=== PATIENT | male | born 1960 | race Caucasian/White ===

== ENCOUNTER 2018-05-23 12:27 | Emergency (ER) | payer MEDICAID, SELFPAY ==
[2018-05-23 12:35] VITALS: BP 145/86; PULSE 53; RESP 18; TEMP 37; O2SAT 99
--- NOTE | 2018-05-23 12:57 | DI.RPTCT_ITS ---
SYMPTOMS/DIAGNOSIS: TRAUMA, LEFT JAW/HEAD PAIN, LEFT ARM INJURY S/P FALL FROM LADDER NONCONTRAST HEAD CT: There are no prior comparison exams. No intracranial hemorrhage or skull fracture is seen. The ventricles are normal in size. The sinuses and mastoid air cells appear clear. IMPRESSION: Negative head CT. FACIAL CT: There is a comminuted fracture of the left zygomatic arch with inward displacement. No additional facial fractures are seen. The orbits appear intact. No temporomandibular joint dislocation is seen. IMPRESSION: Left zygomatic arch fractures.
--- NOTE | 2018-05-23 12:58 | DI.REPORT_ITS ---
SYMPTOMS/DIAGNOSIS: TRAUMA, PAIN 1ST MCP JOINT, PAIN MEDIAL AND LATERAL WRIST, ELBOW PAIN LEFT HAND: No fracture or dislocation is seen. There are mild degenerative changes of the interphalangeal joints. IMPRESSION: No acute abnormality. LEFT WRIST: No fracture or dislocation is seen. There are mild degenerative changes at the first carpal metacarpal joint and a cyst in the lunate. IMPRESSION: No acute abnormality. LEFT ELBOW: No fracture or joint effusion is seen. IMPRESSION: Negative left elbow.
--- NOTE | 2018-05-23 13:23 | ED.GENADUL_ITS ---
Disposition Clinical Impression: Zygomatic arch fracture Disposition: HOME Condition: Stable Instructions: Facial Fracture (ED) Additional Instructions: Please return immediately to the emergency department if you develop any new or worsening symptoms or if you become otherwise concerned. It is extremely important that you make an appointment to be seen by an clearing tub worker within the next week. Dr. Zamora's office of Ear, Nose and Throat at [facility] will call this week to schedule that appointment. Please call [phone] if you have any difficulty establishing this appointment. Please eat a soft diet as tolerated. It is also very important that you call the orthopedist to schedule an appointment to be seen within the next 1-2 weeks for a wrist injury. Referrals: Pravin Young MD [ [facility] STAFF PHYSICIAN] - Gabriela Max MD [ [facility] STAFF PHYSICIAN] - Medical Decision Making - Radiology Data CT head/facial bones per radiology: comminuted fx of Left zygomatic arch with inward displacement, no other acute process Plain films left elbow, wrist, hand visualized and interpreted by myself in conjunction with radiology: no acute process - Medical Decision Making Dontae Brewster is a 57 y/o man without reported h/o major medical problems who presented to the ED with left facial pain and left UE pain after fall while holding onto ladder that slid down wall. On exam with TTP over left zygoma and TTP of left wrist and left MCP joint. ROM left UE joints intact. C/s NTTP. Exam/ hx not c/w c/s fx, signficant thoraco-abdominal trauma. Concern for intracranial /facial trauma, fx of the elbow, wrist, hand vs UCL injury vs contusion. Plan for CT head/face, plain films left elbow, wrist, hand. Pt declines pain meds at this time. CT shows comminuted fx of zyogmatic arch. Plan for ENT consult for appropriate f /u. [facility] [place] contacted, images pushed, awaiting callback. 3:53 Contacted [facility] [place], who reports that they have not yet received images and will work on obtaining them. Discussed Pt presentation and results with Dr. Zamora, on-call ENT at [facility] [place], who has reviewed images, recommends no abx, f/u with ENT in one week, for eval for possible surgery, soft diet as tolerated, no other restrictions. Pt placed in thumb spica. Lengthy discussion with Pt re: RTED precautions, importance of outpt f/u with ENT in one week and ortho in 1-2 weeks for continued symptoms, and with PCP. Pt is amenable to the plan. History of Present Illness - General Chief complaint: Orthopedic Stated complaint: LEFT ARM INJURY Time Seen by Provider: 05/23/18 12:41 Source: patient, RN notes reviewed Mode of arrival: ambulatory Limitations: no limitations - History of Present Illness Initial comments: Dontae Brewster is a 57 y/o man without reported h/o major medical problems presenting to the emergency department with facial pain after fall from ladder. Pt reports that just prior to arrival he was standing on a ladder in his home.The bottom of the ladder began to slip outward away from the wall, and the Pt reports that he fell approximately 8 feet while holding onto the ladder. He landed with his left face against the ladder. He now reports left-sided facial pain, and some pain in his left elbow, left, wrist, and left thumb. He denies hitting his head. Denies LOC, remembers event in entirety. No n/v. Denies neck pain or any other pain other than as above. No SOB. No n/t or weakness. Was previously in his usual state of health, denies any symptoms prior to ladder accident. Has been eating and drinking as usual. - Related Data Naproxen Sodium [Aleve] 2 cap PO HS 09/15/13 Allergies Allergy/AdvReac Type Severity Reaction Status Date / Time No Known Allergies Allergy Unverified 05/23/18 12:38 Review of Systems Constitutional: denies: fever Eyes: denies: eye pain ENT: denies: ear pain, throat pain, dental pain Respiratory: denies: cough, shortness of breath Cardiovascular: denies: chest pain Endocrine: denies: increased hunger, increased thirst Gastrointestinal: denies: abdominal pain, nausea, vomiting Musculoskeletal: arthralgia (left elbow, left wrist, left hand). denies: back pain, myalgia Skin: denies: rash Neurological: denies: headache, weakness, numbness Past Medical History - Past Medical History Medical history: no medical history. denies: diabetes - Social History Smoking status: former smoker Alcohol use: none Drug use: marijuana General Exam - General Limitations: no limitations General appearance: alert, other (appears uncomfortable but pleasant and conversing normally, non-toxic) - Head Head exam: Present: atraumatic, normocephalic, normal inspection - Eye Eye exam: Present: PERRL. Absent: scleral icterus, conjunctival injection Pupils: Absent: irregular, unequal, miosis, mydriatic - ENT ENT exam: Present: normal orophraynx, mucous membranes moist, normal external ear exam, other (edema and TTP over left zygoma with <1cm superfical abrasion overlying. Pain with wide opening of jaw but no trismus. Left TMJ NTTP. No other facial bone TTP. ) - Neck Neck exam: Present: normal inspection, full ROM. Absent: tenderness (no vertebral or paraspinal TTP) - Respiratory Respiratory exam: Present: normal lung sounds bilaterally. Absent: respiratory distress, chest wall tenderness - Cardiovascular Cardiovascular Exam: Present: regular rate, normal rhythm, normal heart sounds - GI/Abdominal GI/Abdominal exam: Present: soft. Absent: distended, tenderness - Extremities Exam Extremities exam: Present: normal inspection, full ROM (FROM left elbow, left wrist, left hand. Pain with abduction/adduction left thumb against resistence. Flex/ext all digitis intact. ), tenderness (radial and ulnar aspects of left wrist. +snuffbox TTP. TTP of left 1st MCP joint. ), normal capillary refill ( radial pulses intact and symmetric), other. Absent: pedal edema, joint swelling (left elbow NTTP. Left forearm NTTP. left clavicle, shoulder, humerus NTTP. Normal exam of RUE. ) - Back Exam Back exam: Present: normal inspection. Absent: tenderness, rash noted - Neurological Exam Neurological exam: Present: alert, CN II-XII intact, normal gait. Absent: altered - Psychiatric Psychiatric exam: Present: normal affect, normal mood - Skin Skin exam: Present: warm, dry, intact, normal color. Absent: rash Course Vital Signs - 24 hr 05/23/18 12:35 Temperature 37 C Pulse 53 L Respiratory 18 Rate Blood Pressure 145/86 Pulse Oximetry 99
[2018-05-23] MEDS: Ibuprofen 600 MG TAB PO (15:56)
[2018-05-23] MEDS: oxyCODONE 5 mg/Acetaminophen 325 mg TAB 1 TAB PO (16:19)
[2018-05-23 16:22] VITALS: TEMP 36.5
== END 2018-05-23 16:23 | disposition home or self-care (01) ==
PROVIDERS: Emergency Provider Student in an Organized Health Care Education/Training Program; PCP Nurse Practitioner Family
DX: S02.40FA Zygomatic fracture, left side, initial encounter for closed fracture (principal); M79.631 Pain in right forearm; M79.642 Pain in left hand; W11.XXXA Fall on and from ladder, initial encounter
CPT/HCPCS: 29125; 99284; 70450; 70486; 73080; 73110; 73130; 99285; L3807

== ENCOUNTER 2023-08-05 19:09 | Outpatient (REF) | payer MEDICAID, SELFPAY ==
[2023-08-05 19:26] LABS: Abs Immature Grans 0.04 10^3/uL (0.0-0.06); Absolute Basophil Count 0.07 10^3/uL (0.0-0.2); Absolute Eosinophil Count 0.35 10^3/uL (0.0-0.7); Absolute Lymphocyte Count 3.17 10^3/uL (1.2-3.4); Absolute Monocyte Count 0.72 10^3/uL (0.1-0.8); Absolute Neutrophil Count 5.99 10^3/uL (1.2-6.7); Basophils % 0.7; Eosinophils % 3.4; HCT 48.6 % (40.0-50.0); HGB 16.3 g/dL (13.5-17.5); Immature Grans % 0.4; Lymphocytes % 30.7; MCH 29.9 pg (27.0-33.0); MCHC 33.5 % (32.0-36.0); MCV 89 fL (80-95); MPV 10.7 fL (8.0-11.0); Neutrophils % 57.8; Platelet Count 231 10^3/uL (130-400); RBC 5.46 10^6/uL (4.36-5.78); RDW 13.2 % (11.8-14.1); RDW-SD 42.8 fL; WBC 10.34 10^3/uL (4.4-10.8)
[2023-08-05 20:17] LABS: ALT 55 U/L (16-63); AST 35 U/L (15-37); Albumin 4.4 g/dL (3.4-5.0); Alkaline Phosphatase 82 U/L (46-116); Anion Gap 12.3 mmol/L (3-11); BUN 17 mg/dL (7-18); Bilirubin, Total 0.4 mg/dL (0.2-1.0); CO2 22.7 mmol/L (21.0-32.0); Calcium 9.2 mg/dL (8.5-10.1); Calculated LDL 128 mg/dL (<100); Chloride 106 mmol/L (98-107); Cholesterol 261 mg/dL (<200); Estimated GFR 86.16 (mL/min/1.73m2); Glucose 99 mg/dL (74-106); HDL Cholesterol 54 mg/dL (40-60); Potassium 4.5 mmol/L (3.5-5.1); Sodium 141 mmol/L (136-145); TSH (W/Ref FT4) 2.76 uIU/mL (0.36-3.74); Total Protein 7.5 g/dL (6.4-8.2); Triglyceride 398 mg/dL (<150)
== END 2023-08-05 19:10 | disposition home or self-care (01) ==
LOC: NCHCN 19:09
PROVIDERS: PCP Nurse Practitioner Family; Visit Provider Nurse Practitioner Family
DX: R03.0 Elevated blood-pressure reading, without diagnosis of hypertension (principal); R35.1 Nocturia; Z13.1 Encounter for screening for diabetes mellitus; Z12.5 Encounter for screening for malignant neoplasm of prostate
CPT/HCPCS: 80053; 80061; 84153; 84443; 85025

== ENCOUNTER 2025-03-22 10:52 | Outpatient (REF) | payer MEDICAID, SELFPAY ==
[2025-03-22 15:36] LABS: Calculated LDL 138 mg/dL (<100); Cholesterol 216 mg/dL (<200); HDL Cholesterol 58 mg/dL (>or=40); Triglyceride 103 mg/dL (<150)
== END 2025-03-22 10:53 | disposition home or self-care (01) ==
LOC: NCHCN 10:52
PROVIDERS: PCP Nurse Practitioner Family; Visit Provider Nurse Practitioner Family
DX: E78.5 Hyperlipidemia, unspecified (principal)
CPT/HCPCS: 80061

== ENCOUNTER 2025-08-02 10:32 | Day surgery (SDC) | payer MEDICAID, SELFPAY ==
[2025-08-02 10:45] VITALS: BP 122/93; PULSE 78; RESP 14; TEMP 36.9; O2SAT 97
[2025-08-02] MEDS: Lactated Ringers 1,000 ML 80 ML IV (11:05)
--- NOTE | 2025-08-02 11:23 | W.PM.DSUDISC ---
Date of service: 08/02/25 Discharge Plan Disposition Patient Disposition: Home Condition: Stable Discharge Details Attending Provider: Ruma Lal Primary Care Provider: DUSTY BARNARD Home Meds and New Rx's Prescriptions: Continued naproxen sodium [Aleve] 220 MG capsule 2 cap PO HS Discontinued bisacodyl [Dulcolax (bisacodyl)] 5 mg tablet,delayed release (DR/EC) 5 mg PO ONCE Qty: 4 0RF Rx Instructions: Take per colonoscopy instructions provided by ordering providers office polyethylene glycol 3350 17 gram/dose powder 17 g PO ONCE Qty: 238 0RF Rx Instructions: Take per colonoscopy instructions provided by ordering providers office Discharge Instructions Additional Instructions: One small polyp seen and removed from the right side of the colon. Next colonoscopy will be due in 5 years if the polyp is hyperplastic or tubular adenoma, or will be due in 3 years if sessile serrated adenoma. I will let you know by mail within the next month what that polyp biopsy shows and when you should return. Activity:: Activity as Tolerated Diet:: As Tolerated Discharge Orders Discharge Orders: Discharge Order (Routine); Ordered 08/02/25 Ordered By: Ruma Lal DS: Diagnosis Discharge Diagnosis (1) Encounter for colonoscopy in patient with family history of colon cancer: Status: Acute (2) Polyp of ascending colon: Status: Acute
--- NOTE | 2025-08-02 11:35 | W.ANESPRE ---
General Info Date of Service Date Performed: 08/02/25 Height: 5 ft 9 in Weight: 76.2 kg Body Mass Index (BMI): 24.7 Surgical Procedure: Operation Date: 08/02/25 12:05 Proposed Procedure Side Surgeon p Colonoscopy Ruma Lal MD Actual Procedure Side Surgeon p Colonoscopy Not Applicable Ruma Lal MD Meds Allergies and Home Medications Allergies Allergy/AdvReac Type Severity Reaction Status Date / Time No Known Allergies Allergy Verified 08/02/25 10:42 Home Medication ?Medication ?Instructions ?Recorded naproxen sodium 220 mg capsule 2 cap PO HS 09/15/13 (Aleve) Current Visit Medications: Current Medications Generic Name Dose Route Start Last Admin Trade Name Freq PRN Reason Stop Dose Admin Ringer's Solution 1,000 mls @ 80 mls/hr 08/02/25 06:00 08/02/25 11:05 IV 08/02/25 23:59 80 mls/hr INFUSION SILVIA Administration IV Miscellaneous Supplies 1 each 08/02/25 06:00 Iv Access IV 08/02/25 23:59 DIRECTED SILVIA Sodium Biphosphate/Sodium Phosphate 133 ml 08/02/25 06:00 Na Phosphate Enema-Adult 133 Ml Btl MA 08/02/25 23:59 DIRECTED PRN Sodium Chloride 0 ml 08/02/25 06:00 Normal Saline Flush 10 Ml Syr IV 08/02/25 23:59 PRN PRN Sodium Chloride 0 ml 08/02/25 06:00 Normal Saline 10 Ml Vial IJ 08/02/25 23:59 DIRECTED PRN Sterile Water 0 ml 08/02/25 06:00 Water,Injection,Sterile 10 Ml Vial IJ 08/02/25 23:59 DIRECTED PRN PFSH Active Problems Active Problems: Problem Status Onset Code Encounter for colonoscopy in patient with family history of colon cancer Acute Z12.11, Z80.0 Medical History Medical History (Updated 08/02/25 @ 11:24 by Ruma Lal MD) Nocturia Elevated blood pressure reading without diagnosis of hypertension Hip pain, left Bilateral tinnitus Cannabis dependence Dyslipidemia Surgical History Surgical History EXCISION OF MUCOUS CYST LEFT THUMB (04/10/16) DR. SCHAFER Colonoscopy - MAC (03/28/18) Tobacco Smoking/Tobacco Use Status: Never Alcohol Alcohol Intake: former Substance Use Substance use: Daily Substance use type: marijuana Details: inhaled and eaten, last was 08/02/25. Vital Signs and Lab Results Vital Signs Most Recent Vital Signs in EMR: Most Recent Vital Signs Temp Pulse Resp BP Pulse Ox 36.9 C 78 14 122/93 H 97 08/02/25 10:45 08/02/25 10:45 08/02/25 10:45 08/02/25 10:45 08/02/25 10:45 Anesthesia Assessment and Plan Anesthesia History Personal History: No History of Anesthesia Complications Family History: No Family History of Anesthesia Complications Exercise Tolerance Exercise Tolerance: Metabolic Equivalents>4 Pertinent Negatives Pertinent Negatives: No Symptoms of GERD, No Major Cardiovascular Symptoms or Complaints and No Major Pulmonary Symptoms or Complaints Cardiac & Pulmonary Exam Cardiac Exam: Normal S1/S2 Heart Sounds Pulmonary Exam: Clear Bilateral Breath Sounds Implantable Cardiac Device Does patient have a Pacemaker or an ICD?: No Airway Exam Known Difficult Airway: No Mallampati Class: 1 Mouth Opening: Normal (> 3cm) Thyromental Distance: Greater than 3 cm Neck Range of Motion: Full ROM Neck Circumference: Normal Teeth Condition: Normal Dentition ASA Classification ASA Score: ASA 2 Emergency Case?: No NPO Status NPO Status: NPO Clears >2 hours, Solids >8 hours Anesthesia Plan Resuscitation Status: Full Code Anesthesia Technique: General Anesthesia Airway Planned: Natural Airway Monitors Used: Standard Monitors
[2025-08-02 11:37] VITALS: BMI 24.7
--- NOTE | 2025-08-02 11:40 | W.COLOREPORT ---
Date of service: 08/02/25 Time of Service: 12:07 Colonoscopy Report Date of procedure: 08/02/25 Pre-op diagnosis general: Screening for colorectal cancer Post-op diagnosis procedure note: same (1. screening due to family history of colon cancer in brother. 2. ascending colon polyp) Procedure: Colonoscopy Surgeon: Ruma Lal Anesthesia Type: General:No Airway Estimated blood loss (mL): 1 Pathology: other (ascending colon cancer) Complications: None Indications: screening for colorectal cancer, brother with colon cancer Prep: Miralax/Dulcolax (Good/excellent) Procedure Description: Informed consent was obtained and the patient was taken to the procedure area. The patient was placed in left lateral decubitus position on the procedure table. Timeout was performed. Anesthesia was induced. A lubricated colonoscope was inserted through the anus and passed to the cecum. The cecum was identified by the ileocecal valve and the appendiceal orifice. The scope was then slowly withdrawn and the colonic and rectal mucosa examined. Ascending colon polyp 6mm, pedunculated, excised with cold forceps. removal and retrieval were complete. No diverticulosis was seen. The scope was retroflexed in the anorectal junction examined. Uncomplicated internal hemorrhoids present. Assessment and plan: Screening for colorectal cancer family history of colon cancer in brother ascending colon polyp Next colonoscopy will be due in 5 years if the polyp is hyperplastic or adenomatous, and 3 years if sessile serrated adenoma.
--- NOTE | 2025-08-02 12:00 | BOWEL_PTH ---
PATIENT: Dontae Brewster LOC: [facility] U#:[id number] AGE/SX: 64/M ROOM: RE08/02/[address]: Ruma Lal MD : 1960 BED: DIS: 08/02/2025 SPEC #: [id number] RECD: 08/02/25 12:50 STATUS: CLARISSA REGretta #: [id number] SINCERE: 08/02/25 12:[address]: Ruma Lal DEPT: Surgical Specimen RECD BY: Shima Manzo ENTERED: 08/02/25 12:51 SP TYPE: Bowel OTHR DR: DUSTY BARNARD, MINISTER Tissues: 1 - BIOPSY BOWEL Procedures: GROSS AND MICRO LEVEL 4 Comments: [id number]
[2025-08-02 12:11] VITALS: BP 111/86; PULSE 84; RESP 14; TEMP 36; O2SAT 96
--- NOTE | 2025-08-02 12:41 | W.ANESPOSTOP ---
Postoperative Evaluation Date, Time and Location Date Performed: 08/02/25 Time Performed: 12:11 Patient Location: Day Surgery Unit Vital Signs Most Recent Imported Vital Signs: Most Recent Vital Signs Temp Pulse Resp BP Pulse Ox 36.0 C L 84 14 111/86 96 08/02/25 12:11 08/02/25 12:11 08/02/25 12:11 08/02/25 12:11 08/02/25 12:11 Pain Score Most Recent Pain Score: Most Recent Pain Score Pain Level 0 08/02/25 12:11 Assessment Mental Status: Awake (Alert & Oriented to Patient Baseline) Airway and Respiratory Function: Patent airway with normal (patient baseline) respiratory exam Cardiovascular Function: Hemodynamically Stable Hydration Status: Adequately Hydrated Nausea & Vomiting: No Nausea or Vomiting Pain: Pt. Denies Any Pain Peripheral Nerve Block: Patient did not receive a nerve block
[2025-08-02 12:43] VITALS: BP 128/99; PULSE 60; RESP 16; TEMP 36.2; O2SAT 96
== END 2025-08-02 12:51 | disposition home or self-care (01) ==
PROVIDERS: PCP Nurse Practitioner Family; Visit Provider Surgery
PROC: 0DJD8ZZ Inspection of Lower Intestinal Tract, Via Natural or Artificial Opening Endoscopic (ICD-10-PCS; CPT 45378; principal; 2025-08-02 12:00)
DX: Z12.11 Encounter for screening for malignant neoplasm of colon (principal); Z80.0 Family history of malignant neoplasm of digestive organs; D12.2 Benign neoplasm of ascending colon
CPT/HCPCS: 45380; 88305; J2003; J2704